=== PATIENT | male | born 1965 | race Caucasian/White ===

== ENCOUNTER → 2017-07-03 | Outpatient (CLI) | payer OTHER | LOC: BMCIMAGING 09:47 | PROVIDERS: ATTEND Internal Medicine | DX: R06.09 Other forms of dyspnea (principal) ==

== ENCOUNTER 2017-07-04 21:46 | Emergency (ER) | payer OTHER ==
--- NOTE | 2017-07-04 21:57 | EDPHY ---
H & P Stated Complaint: general malaise, mild nausea, wooly headed feeling, saw PCP yesterday HPI/ROS: HPI CHIEF COMPLAINT: Generalized malaise, intermittent shortness of breath, "funny feeling in head" HTN HISTORY OF PRESENT ILLNESS: This patient very pleasant 52-year-old male, does have significant past medical history for hypertension, hyperlipidemia otherwise healthy, he presents emergency room with constitution of complaints. He states that for the past 6 4-6 months he has had some generalized malaise, intermittent shortness of breath, a "funny feeling" in his head which he has hard time to describe, and hypertension. Patient states he recently saw his primary care doctor Dr. Lucas. He had blood test done. He tells me his blood pressure was high tonight after 170/100. He is unsure but is blood pressures been running in the last 6 months. He initially had blood with the test by his primary care doctor. He is unsure exactly results. He is due to next Monday have an echocardiogram and stress test. He states primary care doctor was unsure exactly what the cause of his symptoms are. He decided to come to the emergency room this evening as he felt worse this evening. Main complaint funny feeling in his head. Intermittent shortness of breath like he can't get a deep breath in. He denies chest pain. Denies pleuritic pain. Denies hemoptysis. Denies recent illness. Denies fever. Denies back pain neck pain jaw pain arm pain numbness or tingling or abdominal pain. He distally tells me had a stress test approximately 5 years ago. Past Medical History: Hypertension, hyperlipidemia Past Surgical History: Denies recent surgical history Social History: Denies daily use drugs alcohol tobacco products. 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 Family History: Noncontributory ROS REVIEW OF SYSTEMS: A comprehensive 10 point review of systems is otherwise negative aside from elements mentioned in the history of present illness. Exam Constitutional appears well nontoxic triage nursing summary reviewed, vital signs reviewed, awake/alert. Eyes normal conjunctivae and sclera, EOMI, PERRLA. HENT normal inspection, atraumatic, moist mucus membranes, no epistaxis, neck supple/ no meningismus, no raccoon eyes. Respiratory clear to auscultation bilaterally, normal breath sounds, no respiratory distress, no wheezing. Cardiovascular rate normal, regular rhythm, no murmur, no edema, distal pulses normal. Gastrointestinal soft, non-tender, no rebound, no guarding, normal bowel sounds, no distension, no pulsatile mass. Genitourinary no CVA tenderness. Musculoskeletal no midline vertebral tenderness, full range of motion, no calf swelling, no tenderness of extremities, no meningismus, good pulses, neurovascularly intact. Skin pink, warm, & dry, no rash, skin atraumatic. Neurologic awake, alert and oriented x 3, AAOx3, moves all 4 extremities equally, motor intact, sensory intact, CN II-XII intact, normal cerebellar, normal vision, normal speech. Psychiatric normal mood/affect. Heme/Lymph/Immune no lymphadenopathy. Differential Diagnosis: Includes but is not limited to in a particular order infection, electrolyte disturbance, intracranial mass, cardiac disease, pulmonary embolism, lung disease Medical Decision Making: Plan for this patient IV establishment blood draw, EKG , troponin, D-dimer, lab work, nursing educator, CT scan head without contrast and re-evaluate Re-evaluation: EKG interpretation by me on record in [employer] system. Impression time of EKG 2215, this is sinus rhythm rate of 77, I do not appreciate acute ischemic changes. No ST elevation ST depression or significant T-wave abnormalities. No prolonged intervals. 2336: Patient's blood work reviewed is unremarkable. Normal. Normal troponin normal D-dimer. Reviewed his recent x-ray outpatient was unremarkable. His CT scan of his head is unremarkable. Electrolytes are appropriate kidney function appropriate. D-dimer negative. No evidence of PE or cardiac disease. EKG nonischemic. I have updated the patient at this time. His blood pressure is greatly improved here. 2344: I did re-evaluate this patient this time is resting comfortably. Again he has no chest pain or shortness of breath. His workup for fatigue, lightheadedness, intermittent shortness of breath is unremarkable. It was noted he was hypertensive here when he arrived. However this is resolved on its own. I have no indication that he is having a cardiac event. I do recommend he again follows up his primary care doctor additionally continue with his echocardiogram and stress test outpatient next week. He does understand return to the ER if he develops any worsening symptoms includes chest pain, shortness of breath questions or concerns. Source: Patient - Personal History Current Tetanus/Diphtheria Vaccine: Unsure - Medical/Surgical History Hx Asthma: No Hx Chronic Respiratory Disease: No Hx Diabetes: No Hx Cardiac Disease: No Hx Renal Disease: No Hx Cirrhosis: No Hx Alcoholism: No Hx HIV/AIDS: No Hx Splenectomy or Spleen Trauma: No Other PMH: PSHx: cataract. PMHx: hypertension, high cholesterol, degenerative retinal disease - Social History Smoking Status: Never smoked Constitutional: Initial Vital Signs Heart Rate 81 07/04/17 21:50 Respiratory Rate 16 07/04/17 21:50 Blood Pressure 167/92 H 07/04/17 21:50 O2 Sat (%) 98 07/04/17 21:50 O2 Delivery Mode Room Air Allergies/Adverse Reactions: No Known Allergies Allergy (Unverified 07/04/17 21:48) Home Medications: Medication Instructions Recorded ASPIRIN 07/04/17 Lisinopril 07/04/17 Norvasc 07/04/17 Omeprazole 07/04/17 SIMVASTATIN 07/04/17 Medical Decision Making - Diagnostics Imaging Results: Imaging Impressions Head CT 07/04/17 22:14 Impression: No evidence for acute intracranial abnormality. Results called and discussed with John Geronimo MD at 07/04/2017 23:07. - Data Points Laboratory Results: Laboratory Results 07/04/17 22:20 07/04/17 22:20 07/04/17 07/04/17 07/04/17 22:55 22:20 22:20 WBC RBC Hgb Hct MCV MCH MCHC RDW Plt Count MPV Neut % (Auto) Lymph % (Auto) [place] % (Auto) Eos % (Auto) Baso % (Auto) Nucleat RBC Rel Count Absolute Neuts (auto) Absolute Lymphs (auto) Absolute Monos (auto) Absolute Eos (auto) Absolute Basos (auto) Absolute Nucleated RBC Immature Gran % Immature Gran # PT 12.9 SEC SEC (12.0-15.0) INR 0.98 (0.83-1.16) APTT 29.8 SEC SEC (23.0-38.0) D-Dimer < 0.27 ug/mLFEU ug/mLFEU (0.00-0.50) Sodium 136 mEq/L mEq/L (134-144) Potassium 3.6 mEq/L mEq/L (3.5-5.2) Chloride 101 mEq/L mEq/L (97-110) Carbon Dioxide 24 mEq/l mEq/l (22-31) Anion Gap 11 mEq/L mEq/L (8-16) BUN 18 mg/dL mg/dL (7-23) Creatinine 1.0 mg/dL mg/dL (0.7-1.3) Estimated GFR > 60 Glucose 103 mg/dL H mg/dL (70-100) Calcium 10.2 mg/dL mg/dL (8.5-10.4) Magnesium 2.0 mg/dL mg/dL (1.6-2.3) Total Bilirubin 0.6 mg/dL mg/dL (0.1-1.4) Conjugated Bilirubin 0.3 mg/dL mg/dL (0.0-0.5) Unconjugated Bilirubin 0.3 mg/dL mg/dL (0.0-1.1) AST 31 IU/L IU/L (17-59) ALT 44 IU/L IU/L (21-72) Alkaline Phosphatase 54 IU/L IU/L (38-126) Creatine Kinase 129 IU/L IU/L (0-224) CK-MB (CK-2) Fraction 1.08 ng/mL ng/mL (0.00-3.19) Troponin I < 0.012 ng/mL ng/mL (0.000-0.034) NT-Pro-B Natriuret Pep < 11 pg/mL pg/mL (0-125) Total Protein 7.5 g/dL g/dL (6.3-8.2) Albumin 4.5 g/dL g/dL (3.5-5.0) Lipase 134 IU/L IU/L (23-300) Urine Color YELLOW Urine Appearance CLEAR Urine pH 7.0 (5.0-7.5) Ur Specific [place] 1.016 (1.002-1.030) Urine Protein NEGATIVE (NEGATIVE) Urine Ketones NEGATIVE (NEGATIVE) Urine Blood NEGATIVE (NEGATIVE) Urine Nitrate NEGATIVE (NEGATIVE) Urine Bilirubin NEGATIVE (NEGATIVE) Urine Urobilinogen NEGATIVE EU EU (0.2-1.0) Ur Leukocyte Esterase NEGATIVE (NEGATIVE) Urine Glucose NEGATIVE (NEGATIVE) 07/04/17 22:20 WBC 10.25 10^3/uL H 10^3/uL (3.80-9.50) RBC 5.07 10^6/uL 10^6/uL (4.40-6.38) Hgb 14.8 g/dL g/dL (13.7-17.5) Hct 43.3 % % (40.0-51.0) MCV 85.4 fL fL (81.5-99.8) MCH 29.2 pg pg (27.9-34.1) MCHC 34.2 g/dL g/dL (32.4-36.7) RDW 13.1 % % (11.5-15.2) Plt Count 274 10^3/uL 10^3/uL (150-400) MPV 10.7 fL fL (8.7-11.7) Neut % (Auto) 54.6 % % (39.3-74.2) Lymph % (Auto) 31.9 % % (15.0-45.0) [place] % (Auto) 10.7 % % (4.5-13.0) Eos % (Auto) 1.5 % % (0.6-7.6) Baso % (Auto) 0.8 % % (0.3-1.7) Nucleat RBC Rel Count 0.0 % % (0.0-0.2) Absolute Neuts (auto) 5.60 10^3/uL 10^3/uL (1.70-6.50) Absolute Lymphs (auto) 3.27 10^3/uL H 10^3/uL (1.00-3.00) Absolute Monos (auto) 1.10 10^3/uL H 10^3/uL (0.30-0.80) Absolute Eos (auto) 0.15 10^3/uL 10^3/uL (0.03-0.40) Absolute Basos (auto) 0.08 10^3/uL 10^3/uL (0.02-0.10) Absolute Nucleated RBC 0.00 10^3/uL 10^3/uL (0-0.01) Immature Gran % 0.5 % % (0.0-1.1) Immature Gran # 0.05 10^3/uL 10^3/uL (0.00-0.10) PT INR APTT D-Dimer Sodium Potassium Chloride Carbon Dioxide Anion Gap BUN Creatinine Estimated GFR Glucose Calcium Magnesium Total Bilirubin Conjugated Bilirubin Unconjugated Bilirubin AST ALT Alkaline Phosphatase Creatine Kinase CK-MB (CK-2) Fraction Troponin I NT-Pro-B Natriuret Pep Total Protein Albumin Lipase Urine Color Urine Appearance Urine pH Ur Specific [place] Urine Protein Urine Ketones Urine Blood Urine Nitrate Urine Bilirubin Urine Urobilinogen Ur Leukocyte Esterase Urine Glucose Medications Given: Discontinued Medications Sodium Chloride (Ns) 1,000 mls @ 0 mls/hr IV EDNOW ONE; Wide Open PRN Reason: Protocol Stop: 07/04/17 22:14 Last Admin: 07/04/17 22:25 Dose: 1,000 mls Departure - Departure Disposition: Home, Routine, Self-Care Clinical Impression: Lightheaded Condition: Good Instructions: Lightheadedness (ED) Additional Instructions: 1.Return to the ER if he develops worsening symptoms questions or concerns 2. Return to the ER if develops chest pain worsening shortness of breath or you do not feel well. 3. Additionally follow up with her primary care doctor Referrals: Gigi Lucas MD [Primary Care Provider] - As per Instructions
[2017-07-04] MEDS ORDERED: NS 1,000 ML IV ONE (22:13)
--- NOTE | 2017-07-04 22:18 | CPEKG ---
Heart Rate: 77 RR Interval: 779 P-R Interval: 176 QRSD Interval: 102 QT Interval: 384 QTC Interval: 435 P [place]: 39 QRS [place]: -26 T Wave [place]: 5 EKG Severity - OTHERWISE NORMAL ECG - EKG Impression: SINUS RHYTHM EKG Impression: BORDERLINE LEFT AXIS DEVIATION Electronically Signed By: John Geronimo 05-Jul-2017 06:47:54
[2017-07-04 22:30] LABS: % IMMATURE GRANULYOCYTES 0.5 % (0.0-1.1); ABSOLUTE IMMATURE GRANULOCYTES 0.05 10^3/uL (0.00-0.10); ADD DIFF? NO; ADD MORPH? NO; ADD SCAN? NO; ATYPICAL LYMPHOCYTE FLAG 0 (0-99); FRAGMENT RBC FLAG 0 (0-99); HEMATOCRIT 43.3 % (40.0-51.0); HEMOGLOBIN 14.8 g/dL (13.7-17.5); LEFT SHIFT FLG 0 (0-99); LIPEMIA HEMOLYSIS FLAG 90 (0-99); MEAN CELL HEMOGLOBIN 29.2 pg (27.9-34.1); MEAN CELL HEMOGLOBIN CONCENTR. 34.2 g/dL (32.4-36.7); MEAN CELL VOLUME 85.4 fL (81.5-99.8); MEAN PLATELET VOLUME 10.7 fL (8.7-11.7); PLATELET CLUMPS FLAG 0 (0-99); PLATELET COUNT 274 10^3/uL (150-400); RED BLOOD CELL COUNT 5.07 10^6/uL (4.40-6.38); RED CELL DISTRIBUTION WIDTH 13.1 % (11.5-15.2)
[2017-07-04 22:36] LABS: APTT 29.8 SEC (23.0-38.0); INR 0.98 (0.83-1.16); PROTIME(PATIENT) 12.9 SEC (12.0-15.0)
[2017-07-04 22:55] LABS: ALANINE AMINOTRANSFERASE 44 IU/L (21-72); ALBUMIN 4.5 g/dL (3.5-5.0); ALKALINE PHOSPHATASE 54 IU/L (38-126); ANION GAP 11 mEq/L (8-16); ASPARTATE AMINOTRANSFERASE 31 IU/L (17-59); BILIRUBIN,TOTAL 0.6 mg/dL (0.1-1.4); BILIRUBIN-CONJUGATED 0.3 mg/dL (0.0-0.5); BILIRUBIN-UNCONJUGATED 0.3 mg/dL (0.0-1.1); CALCIUM 10.2 mg/dL (8.5-10.4); CARBON DIOXIDE 24 mEq/l (22-31); CHLORIDE 101 mEq/L (97-110); GLOMERULAR FILTRATION RATE > 60; GLUCOSE 103 mg/dL (70-100); POTASSIUM 3.6 mEq/L (3.5-5.2); SODIUM 136 mEq/L (134-144); TOTAL PROTEIN 7.5 g/dL (6.3-8.2)
[2017-07-04 23:07] LABS: CREATINE KINASE-MB FRACTION 1.08 ng/mL (0.00-3.19); TROPONIN I < 0.012 ng/mL (0.000-0.034)
[2017-07-04 23:09] LABS: COLOR YELLOW; LEUKOCYTE ESTERASE,URINE NEGATIVE (NEGATIVE); NITRITE,URINE NEGATIVE (NEGATIVE)
[2017-07-05 00:16] VITALS: BP 121/78; PULSE 63; RESP 18; TEMP 97.7; O2SAT 94
== END 2017-07-05 00:14 | disposition home or self-care (01) ==
DX: R42 Dizziness and giddiness (principal); I10 Essential (primary) hypertension; E86.9 Volume depletion, unspecified; Z79.82 Long term (current) use of aspirin